=== PATIENT | female | born 1940 | race Hispanic/Latino ===

== ENCOUNTER 2018-02-01 16:48 | Emergency (ER) | payer MEDICARE ==
[2018-02-01] MEDS ORDERED: Acetaminophen 500 MG TAB ONE (18:09)
--- NOTE | 2018-02-01 19:48 | CT ---
NONCONTRAST CT HEAD: 02/01/2018 HISTORY: Trauma. The patient fell one day ago. The patient reports vision changes, neck pain, and headache. COMPARISON: 11/06/2016 FINDINGS: Again noted are chronic small vessel ischemic changes and cerebral volume loss. There is no evidence of an acute cortical infarction, hemorrhage, mass effect, or midline shift. The ventricular system is normal in size, shape, and position. No calvarial fracture is seen. There has been no interval c hange compared to the prior exam. IMPRESSION: 1. No acute intracranial abnormalities demonstrated. 2. Chronic small vessel ischemic changes and cerebral volume loss, similar to prior exam. POS: [facility]
--- NOTE | 2018-02-01 19:56 | CT ---
NONCONTRAST CT CERVICAL SPINE: 02/01/2018 HISTORY: Bilateral upper extremity pain and back pain. Trauma. The patient complains of headache and neck pa in. COMPARISON: 09/02/2013 TECHNIQUE: Contiguous axial CT images were obtained through the cervical spine from the skull base, to the T2-T3 level. Sagittal and coronal reformatted images are provided. FINDINGS: There is no evidence of a fracture or subluxation involving the cervical spine. Vertebral body heigh ts are within normal limits. There has been interval progression and degenerative changes present at the C4-C5 level with narrowing of the intervertebral disk spaces, and now there are endplate degener ative changes. There is mild posterior osteophyte formation also present at this level. The prevertebral soft tissues are within normal limits. Vascular calcifications are again seen within the carotid arteries bilaterally. There is a stable low density nodule at the posterior aspect of the right lobe of the thyroid gland, unchanged from the prior exam. There is mild calcified pleural and parenchymal scarring in the left lung apex. IMPRESSION: 1. No acute fracture or subluxation involving the cervical spine. 2. Thyroid nodule, right lobe of thyroid gland, stable from prior study in 2012. POS: [facility]
--- NOTE | 2018-02-01 20:08 | RAD ---
TWO VIEWS LEFT TIBIA AND FIBULA: 02/01/2018 HISTORY: Trauma. The patient fell yesterday. FINDINGS: There is no evidence of a fracture-dislocation involving the left tibia or fibula. Vascular calcific ations are seen posterior to the knee. IMPRESSION: No acute osseous abnormality. POS: [facility]
== END 2018-02-01 18:57 | disposition home or self-care (01) ==
LOC: ERS 16:48
DX: Z79.84 Long term (current) use of oral hypoglycemic drugs; Z79.82 Long term (current) use of aspirin; E78.5 Hyperlipidemia, unspecified; Z79.899 Other long term (current) drug therapy; W19.XXXA Unspecified fall, initial encounter; S80.12XA Contusion of left lower leg, initial encounter; E11.9 Type 2 diabetes mellitus without complications; E04.1 Nontoxic single thyroid nodule; S16.1XXA Strain of muscle, fascia and tendon at neck level, initial encounter
CPT/HCPCS: 70450; 72125

== ENCOUNTER 2019-08-02 12:59 | Outpatient (CLI) | payer MEDICARE ==
--- NOTE | 2019-08-02 15:14 | ULT ---
Arterial duplex sonogram bilateral lower extremity HISTORY: Vascular disease. Claudication. FINDINGS: There is good color and spectral Doppler flow with biphasic waveform throughout each common femoral and deep femoral, popliteal, posterior tibial and anterior tibial arteries. Monophasic flow within the right dorsalis pedis artery. Biphasic flow within the left dorsalis pedis artery. No abnormally elevated peak systolic velocities. IMPRESSION: Good arterial flow throughout each lower extremity without findings of significant stenos is.
== END 2019-08-02 13:00 | disposition home or self-care (01) ==
LOC: ULT 12:59
PROVIDERS: ATTEND Physician Assistant
DX: I73.9 Peripheral vascular disease, unspecified (principal)
CPT/HCPCS: 93923

== ENCOUNTER 2019-08-03 13:09 | Outpatient (CLI) | payer MEDICARE ==
--- NOTE | 2019-08-03 14:08 | BD ---
BONE DENSITOMETRY USING DEXA: Date: 08/03/19 HISTORY: Postmenopausal screening for osteoporosis. FINDINGS: Lumbar Spine: BMD (g/cm2) L1 0.854 T-Score: -1.2 Z-Score: 1.1 L2 0.905 T-Score: -1.1 Z-Score: 1.5 L3 0.899 T-Score: -1.7 Z-Score: 1.1 L4 0.841 T-Score: -2.0 Z-Score: 0.9 L1-L4 0.874 T-Score: -1.6 Z-Score: 1.1 Femoral Neck: 0.688 T-Score: -1.4 Z-Score: 0.8 Total Femur: 0.884 T-Score: -0.5 Z-Score: 1.6 The 10 year fracture risk for a major osteoporotic fracture is 12% and for a hip fracture is 2.9%. IMPRESSION: Osteopenia. POS: [facility]
== END 2019-08-03 13:10 | disposition home or self-care (01) ==
LOC: BICMAMMO 13:09
PROVIDERS: ATTEND Physician Assistant
DX: Z13.820 Encounter for screening for osteoporosis (principal); N95.1 Menopausal and female climacteric states; M85.89 Other specified disorders of bone density and structure, multiple sites
CPT/HCPCS: 77080

== ENCOUNTER 2021-01-22 10:51 | Emergency (ER) | payer MEDICARE ==
[2021-01-22] MEDS ORDERED: Ketorolac Tromethamine 30 MG/ML VIAL ONE (14:19)
== END 2021-01-22 14:44 | disposition home or self-care (01) ==
LOC: ERS 10:51
DX: M17.12 Unilateral primary osteoarthritis, left knee (principal); E11.9 Type 2 diabetes mellitus without complications; E78.5 Hyperlipidemia, unspecified; I10 Essential (primary) hypertension
CPT/HCPCS: 96372; J1885

== ENCOUNTER 2022-10-22 15:39 | Emergency (ER) | payer MEDICARE | END 2022-10-22 18:38 | disposition home or self-care (01) | LOC: ERS 15:39 | DX: R05.9 Cough, unspecified (principal); E11.9 Type 2 diabetes mellitus without complications; I10 Essential (primary) hypertension; E78.5 Hyperlipidemia, unspecified; Z79.84 Long term (current) use of oral hypoglycemic drugs; Z79.82 Long term (current) use of aspirin | CPT/HCPCS: 71045 ==

== ENCOUNTER 2023-02-28 16:31 | Emergency (ER) | payer OTHER | END 2023-02-28 18:50 | disposition home or self-care (01) | LOC: ERS 16:31 | DX: S20.219A Contusion of unspecified front wall of thorax, initial encounter (principal); S10.93XA Contusion of unspecified part of neck, initial encounter; E11.9 Type 2 diabetes mellitus without complications; E78.5 Hyperlipidemia, unspecified; I10 Essential (primary) hypertension; V43.52XA Car driver injured in collision with other type car in traffic accident, initial encounter; Z79.82 Long term (current) use of aspirin | CPT/HCPCS: 71045; 72040 ==